=== PATIENT | male | born 1930 | race Caucasian/White ===

== ENCOUNTER 2020-08-06 20:33 | Inpatient (IN) | payer MEDICARE ==
[~2020-08-06 20:33] MED LIST: Iopamidol-370 76% 500 ML 1 ML ONE
[2020-08-06] MEDS ORDERED: HYDROcodone/Acetaminophen 7.5/325 mg Tablet PO PRN (21:38)
[2020-08-06] MEDS ORDERED: Zolpidem Tartrate 5 MG TAB PO PRN (21:38)
[2020-08-06] MEDS ORDERED: Bisacodyl 5 MG TAB PO PRN (21:38)
[2020-08-06] MEDS ORDERED: Ondansetron PF 4 MG/2 ML Vial IVP PRN (21:38)
[2020-08-06] MEDS ORDERED: Acetaminophen 325 MG TAB PO PRN (21:38)
[2020-08-06] MEDS ORDERED: Albuterol 200 PUFF (6.7GM INHALER) INH PRN (21:50)
[2020-08-06 22:49] LABS: Troponin I 0.014 ng/mL (< 0.028)
[2020-08-06 22:59] VITALS: BMI 21.8
[2020-08-07 00:48] LABS: SARS-CoV-2 NAA Rapid Test Not Detected (NotDetected)
[2020-08-07 05:43] LABS: Hemoglobin 14.2 g/dL (14.0-18.0); Mean Corpuscular HGB CONC 33.6 g/dL (32.0-36.0); Mean Corpuscular Hemoglobin 29.5 pg (27.0-31.0); Mean Corpuscular Volume 87.7 fL (78.0-98.0); Platelet Count 113 thou/uL (130-400); RBC Distribution Width 12.8 % (11.5-14.5); White Blood Cell (WBC) Count 5.6 thou/uL (4.8-10.8)
[2020-08-07 06:00] LABS: ALT (SGPT) 14 U/L (8-55); AST (SGOT) 20 U/L (5-34); Albumin 3.7 g/dL (3.4-4.8); Alkaline Phosphatase 54 U/L (40-110); Anion Gap 10 mmol/L (10-20); BUN (Urea Nitrogen) 10 mg/dL (8.4-25.7); Bilirubin, Total 1.2 mg/dL (0.2-1.2); Calc. Creatinine Clearance 65 mL/min (70-130); Calcium 9.2 mg/dL (7.8-10.44); Carbon Dioxide 25 mmol/L (23-31); Cardiac Risk 2.2 (Less than 4.5); Chloride 106 mmol/L (98-107); Cholesterol 123 mg/dl (< 200 Desired); Globulin 2.3 g/dL (2.4-3.5); Glucose 91 mg/dL (83-110); HDL Cholesterol 57 mg/dL (>60 Neg Risk); LDL Cholesterol, Calculated 51 mg/dL; Potassium 3.8 mmol/L (3.5-5.1); Sodium 137 mmol/L (136-145); Triglycerides 76 mg/dL (Less than 150)
[2020-08-07 06:13] LABS: Band 3 % (5-11); Eosinophils 2 % (0-10); Lymphocytes 10 % (21-51); MDiff Complete? YES; Monocytes 13 % (0-10); Neutrophil 67 % (42-75); Platelet Morphology Comment Appears Decreased; RBC Morphology Normal; Reactive Lymphocytes 5 % (0-10)
[2020-08-07] MEDS: hydrALAZINE 20 MG/ML VIAL SLOW IVP PRN (07:12)
[2020-08-07] MEDS: Aspirin Chewable 81 MG TAB PO SCH (08:06)
[2020-08-07] MEDS: Famotidine 20 MG TAB PO SCH ×2 (08:06→20:14)
[2020-08-07] MEDS: Rosuvastatin 20 MG TAB PO SCH (08:06)
[2020-08-07] MEDS: Enoxaparin Sodium 30 MG/0.3 ML SYRINGE SC SCH (08:07)
[2020-08-07] MEDS ORDERED: Amlodipine 10 MG TAB PO SCH (09:00)
[2020-08-07] MEDS: Carvedilol 6.25 MG TAB PO SCH ×2 (09:40→20:13)
[2020-08-07] MEDS ORDERED: Loratadine 10 MG TAB PO PRN (14:55)
[2020-08-07] MEDS ORDERED: ALPRAZolam 0.5 MG TAB PO PRN (14:55)
[2020-08-07] MEDS ORDERED: Fluticasone Propionate Nasal Spray 16 gm Bottle NASAL PRN (14:55)
[2020-08-07] MEDS ORDERED: Zolpidem Tartrate 5 MG TAB PO PRN (15:23)
[2020-08-07] MEDS: Pregabalin 75 MG CAP PO SCH ×2 (15:50→20:13)
[2020-08-07] MEDS: Mometasone 100 MCG/Formoterol 5 MCG 120 PUFF INHALER INH SCH (18:50)
[2020-08-08 06:04] LABS: Anion Gap 12 mmol/L (10-20); BUN (Urea Nitrogen) 19 mg/dL (8.4-25.7); Calc. Creatinine Clearance 47 mL/min (70-130); Calcium 8.6 mg/dL (7.8-10.44); Carbon Dioxide 21 mmol/L (23-31); Chloride 106 mmol/L (98-107); Glucose 87 mg/dL (83-110); Sodium 135 mmol/L (136-145)
[2020-08-08 06:12] LABS: #Eosinphils 0.1 thou/uL (0.0-0.7); #Monocytes 1.3 thou/uL (0.11-0.59); #Neutrophils 6.6 thou/uL (1.40-6.50); %Basophils 0.5 % (0.0-1.0); %Eosinophils 0.7 % (0.0-10.0); %Lymphocytes 11.4 % (21.0-51.0); %Monocytes 13.9 % (0.0-10.0); %Neutrophils 73.5 % (42.0-75.0); Hemoglobin 13.4 g/dL (14.0-18.0); Mean Corpuscular HGB CONC 33.6 g/dL (32.0-36.0); Mean Corpuscular Hemoglobin 29.3 pg (27.0-31.0); Mean Corpuscular Volume 87.3 fL (78.0-98.0); Mean Platelet Volume 8.6 fL (7.4-10.4); Platelet Count 118 thou/uL (130-400); RBC Distribution Width 12.8 % (11.5-14.5); Red Blood Cell (RBC) Count 4.57 mill/uL (4.70-6.10)
[2020-08-08] MEDS: Mometasone 100 MCG/Formoterol 5 MCG 120 PUFF INHALER INH SCH ×2 (08:16→18:58)
[2020-08-08] MEDS ORDERED: Amlodipine 10 MG TAB PO SCH (09:00)
[2020-08-08] MEDS: Enoxaparin Sodium 30 MG/0.3 ML SYRINGE SC SCH (09:45)
[2020-08-08] MEDS: pyridOXINE 50 MG (B6) TAB PO SCH (09:45)
[2020-08-08] MEDS: Cyanocobalamin (Vitamin B-12) 1,000 MCG TAB PO SCH (09:46)
[2020-08-08] MEDS: Rosuvastatin 20 MG TAB PO SCH (09:46)
[2020-08-08] MEDS: Famotidine 20 MG TAB PO SCH ×2 (09:46→20:12)
[2020-08-08] MEDS: Carvedilol 6.25 MG TAB PO SCH ×2 (09:47→20:12)
[2020-08-08] MEDS: Aspirin Chewable 81 MG TAB PO SCH (09:47)
[2020-08-08] MEDS: Pregabalin 75 MG CAP PO SCH ×3 (09:47→20:11)
[2020-08-08] MEDS: Cholecalciferol 1,000 UNITS (25 MCG) TAB PO SCH (09:47)
[2020-08-08] MEDS: hydrALAZINE 20 MG/ML VIAL SLOW IVP PRN ×2 (16:00→20:10)
[2020-08-09 05:47] LABS: Mean Corpuscular HGB CONC 32.8 g/dL (32.0-36.0); Mean Corpuscular Hemoglobin 28.8 pg (27.0-31.0); Mean Corpuscular Volume 87.7 fL (78.0-98.0); Mean Platelet Volume 8.6 fL (7.4-10.4); Platelet Count 126 thou/uL (130-400); RBC Distribution Width 12.8 % (11.5-14.5); Red Blood Cell (RBC) Count 5.19 mill/uL (4.70-6.10); White Blood Cell (WBC) Count 7.5 thou/uL (4.8-10.8)
[2020-08-09 06:06] LABS: Band 6 % (5-11); Eosinophils 1 % (0-10); Lymphocytes 20 % (21-51); MDiff Complete? YES; Monocytes 11 % (0-10); Neutrophil 62 % (42-75)
[2020-08-09 06:08] LABS: Anion Gap 15 mmol/L (10-20); BUN (Urea Nitrogen) 18 mg/dL (8.4-25.7); Calc. Creatinine Clearance 56 mL/min (70-130); Calcium 9.1 mg/dL (7.8-10.44); Carbon Dioxide 20 mmol/L (23-31); Chloride 107 mmol/L (98-107); Glucose 92 mg/dL (83-110); Sodium 138 mmol/L (136-145)
[2020-08-09] MEDS: Mometasone 100 MCG/Formoterol 5 MCG 120 PUFF INHALER INH SCH (07:07)
[2020-08-09] MEDS: Enoxaparin Sodium 30 MG/0.3 ML SYRINGE SC SCH (08:25)
[2020-08-09] MEDS: Famotidine 20 MG TAB PO SCH (08:26)
[2020-08-09] MEDS: Carvedilol 6.25 MG TAB PO SCH (08:26)
[2020-08-09] MEDS: Aspirin Chewable 81 MG TAB PO SCH (08:27)
[2020-08-09] MEDS: Cyanocobalamin (Vitamin B-12) 1,000 MCG TAB PO SCH (08:27)
[2020-08-09] MEDS: Rosuvastatin 20 MG TAB PO SCH (08:27)
[2020-08-09] MEDS: Pregabalin 75 MG CAP PO SCH (08:28)
[2020-08-09] MEDS: Cholecalciferol 1,000 UNITS (25 MCG) TAB PO SCH (08:30)
[2020-08-09] MEDS: pyridOXINE 50 MG (B6) TAB PO SCH (08:31)
[2020-08-09] MEDS ORDERED: Amlodipine 5 MG TAB PO SCH (09:00)
[2020-08-09] MEDS ORDERED: Nitroglycerin 0.4 MG TAB (25 Tab Bottle) SL PRN (09:43)
[2020-08-09 12:02] VITALS: BP 138/65; TEMP 97.6
== END 2020-08-09 14:28 | disposition home or self-care (01) | DRG 305 ==
LOC: 2SW 20:33 → OBSVTOIN 08-08 09:56
PROVIDERS: ADMIT Internal Medicine; ATTEND Internal Medicine
DX: I16.0 Hypertensive urgency (principal); B02.29 Other postherpetic nervous system involvement; Z20.822 Contact with and (suspected) exposure to COVID-19; I12.9 Hypertensive chronic kidney disease with stage 1 through stage 4 chronic kidney disease, or unspecified chronic kidney disease; N18.9 Chronic kidney disease, unspecified; E78.5 Hyperlipidemia, unspecified; I25.10 Atherosclerotic heart disease of native coronary artery without angina pectoris; I45.10 Unspecified right bundle-branch block; I44.0 Atrioventricular block, first degree; F41.9 Anxiety disorder, unspecified; R94.31 Abnormal electrocardiogram [ECG] [EKG]; E78.00 Pure hypercholesterolemia, unspecified; N40.0 Benign prostatic hyperplasia without lower urinary tract symptoms; Z95.5 Presence of coronary angioplasty implant and graft; Z79.82 Long term (current) use of aspirin; Z79.51 Long term (current) use of inhaled steroids; Z79.899 Other long term (current) drug therapy; Z90.49 Acquired absence of other specified parts of digestive tract; I25.2 Old myocardial infarction
CPT/HCPCS: 36415; 70450; 71275; 74174; 76770; 80048; 80053; 80061; 84484; 85007; 85025; 85027; 93306; 93975; 96372; 96374; G0378; J0360; J1650; Q9967; U0002